=== PATIENT | male | born 1995 | race Caucasian/White ===

== ENCOUNTER 2018-10-13 21:40 | Emergency (ER) | payer BC ==
[2018-10-13] MEDS ORDERED: TETANUS,DIPHTHERIA,PERTUSSIS 1 EA SYG IM ONE (21:54)
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
[2018-10-14 00:10] VITALS: TEMP 98.4; O2SAT 97
[2018-10-14] MEDS ORDERED: HYDROcodone 7.5MG/APAP 325MG 1 EA TAB PO ONE (00:10)
[2018-10-14] MEDS ORDERED: diphenhydrAMINE HCL 50 MG/ML VIAL IV ONE (00:31)
[2018-10-14] MEDS ORDERED: SODIUM CHLORIDE 0.9% 1000ML 1,000 ML ONE (00:31)
[2018-10-14] MEDS ORDERED: SODIUM CHLORIDE 0.9% 1000ML 1,000 ML IVS ONE (00:31)
[2018-10-14] MEDS ORDERED: diphenhydrAMINE HCL 50 MG/ML VIAL ONE (00:32)
[2018-10-14 01:30] VITALS: BP 109/59
== END 2018-10-14 01:29 | disposition short-term general hospital (02) ==
LOC: ER 21:40
DX: S32.302A Unspecified fracture of left ilium, initial encounter for closed fracture (principal); S32.492A Other specified fracture of left acetabulum, initial encounter for closed fracture; S80.812A Abrasion, left lower leg, initial encounter; V86.59XA Driver of other special all-terrain or other off-road motor vehicle injured in nontraffic accident, initial encounter; Y92.9 Unspecified place or not applicable; Z23 Encounter for immunization
CPT/HCPCS: 36415; 72192; 73502; 80053; 85025; 85610; 85730; 90471; 90715; J1200; J7030

== ENCOUNTER 2018-10-24 23:27 | Emergency (ER) | payer BC ==
[2018-10-25] MEDS ORDERED: LIDOCAINE 1% 10 ML VIAL INJ ONE (00:16)
[2018-10-25 00:32] VITALS: O2SAT 98
[2018-10-25] MEDS ORDERED: NEOMYCIN-BACITRACIN-POLYMYXIN 0.9 GM UD TOP ONE (00:33)
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
[2018-10-25 01:28] VITALS: BP 122/75; TEMP 98
== END 2018-10-25 00:50 | disposition home or self-care (01) ==
LOC: ER 23:27
DX: S80.812A Abrasion, left lower leg, initial encounter (principal); V86.59XA Driver of other special all-terrain or other off-road motor vehicle injured in nontraffic accident, initial encounter

== ENCOUNTER → 2020-05-06 | Outpatient (CLI) | payer BC | LOC: YCFC.O 08:54 | PROVIDERS: ATTEND Family Medicine | DX: Z20.828 Contact with and (suspected) exposure to other viral communicable diseases (principal) ==